=== PATIENT | female | born 2000 | race Caucasian/White ===

== ENCOUNTER 2020-03-07 19:37 | Emergency (ER) | payer MEDICAID ==
[~2020-03-07] VITALS: Ht 162.6 cm; Wt 63.6 kg
[2020-03-07 20:57] VITALS: BP 132/75
== END 2020-03-07 21:00 | disposition home or self-care (01) ==
LOC: EMS 19:51
DX: N39.0 Urinary tract infection, site not specified (principal); Z90.49 Acquired absence of other specified parts of digestive tract; Z88.0 Allergy status to penicillin